=== PATIENT | male | born 1955 | race Caucasian/White ===

== ENCOUNTER 2017-09-24 02:18 | Emergency (ER) | payer OTHER ==
[~2017-09-24] VITALS: Ht 185.4 cm; Wt 100.9 kg
[~2017-09-24 02:18] MED LIST: CHOLESTID PO; HUMERA SC
[2017-09-24 02:22] VITALS: TEMP 36.6; Ht 185.4 cm; Wt 100.9 kg
[2017-09-24 02:26] VITALS: O2SAT 100
[2017-09-24 02:42] LABS: BASO % 1.1 %; BASO ABS # 0.07 K/uL (0-0.2); EOS % 4.9 %; EOS ABS # 0.31 K/uL (0-0.5); HEMATOCRIT 40.5 % (42-52); HEMOGLOBIN 14.2 g/dL (14.0-18.0); IG# 0.02 K/uL (0.00-0.02); LYMPH % 33.1 %; LYMPH ABS # 2.09 K/uL (1.2-3.4); MEAN CELL VOLUME 86.4 fL (80-100); MEAN CORPUSCULAR HEMOGLOBIN 30.3 pg (25-34); MEAN CORPUSCULAR HGB CONC 35.1 g/dl (32-36); MEAN PLATELET VOLUME 8.5 fL (7.4-10.4); MONO % 10.5 %; MONO ABS # 0.66 K/uL (0.11-0.59); NEUT % 50.1 %; NEUT ABS # 3.16 K/uL (1.4-6.5); PLATELET COUNT 197 K/uL (130-400); RED CELL DISTRIBUTION WIDTH CV 13.3 % (11.5-14.5); WHITE BLOOD COUNT 6.31 K/uL (4.8-10.8)
[2017-09-24] MEDS ORDERED: HYDCR25 TOP (02:47)
[2017-09-24] MEDS ORDERED: COLE1TAB PO (02:47)
[2017-09-24] MEDS ORDERED: FLUT0.15 NAE (02:47)
[2017-09-24] MEDS ORDERED: ATOR-22 PO (02:47)
[2017-09-24] MEDS ORDERED: LISI-461 PO (02:47)
[2017-09-24] MEDS ORDERED: HMRIS40 INJ (02:47)
[2017-09-24] MEDS ORDERED: GLC/500 PO (02:47)
--- NOTE | 2017-09-24 02:57 | EMERGENCY ROOM VISIT NOTE ---
History Report prepared by Marcella: Shereen Benz Under the Supervision of: Dr. Kim Funk D.O. First contact with patient: 02:21 Chief Complaint: CHEST PAIN Stated Complaint: chest pain History of Present Illness The patient is a 62 year old male who presents to the Emergency Room with complaints of intermittent chest pain starting a few days ago. The patient states that the pain was mild, but has become worse. He states that the pain is on the left side and he currently rates his pain as a 1/10 in severity. He notes that occasionally he has diaphoresis with chest pain. He notes that exercise makes the pain better. The patient denies ever having chest pain before , ever having a stress test, ever having a cardiac cath done, increased stress, nausea, shortness of breath, leg cramping, leg swelling, and change with deep breathing. Source of History: patient Onset: a few days ago Position: chest Symptom Intensity: 1/10 Timing: intermittent Modifying Factors (Relieving): other (exercise) Associated Symptoms: + diaphoresis, No SOB, No nausea Note: The patient denies leg cramping, leg swelling, increased stress, and change with deep breathing. Review of Systems See HPI for pertinent positives & negatives. A total of 10 systems reviewed and were otherwise negative. Past Medical & Surgical Medical Problems: (1) Crohn's disease (2) HTN (hypertension) Family History Cardiac pacemaker FH: diabetes mellitus Hypertension Social History Smoking Status: Never Smoker Marital Status: single Housing Status: lives alone Occupation Status: retired Current/Historical Medications Scheduled Adalimumab (Humira Pen), 40 MG INJ WK Atorvastatin (Lipitor), 1 TAB PO DAILY Colestipol Hcl (Colestid), 1 GM PO BID Fluticasone Propionate (Nasal) (Flonase Allergy Relief), 2 SPRAYS MAXIM DAILY Lisinopril (Lisinopril), 10 MG PO QAM Metformin Hcl (Glucophage), 500 MG PO BID Scheduled PRN Hydrocortisone (Hydrocortisone), 1 APPLN TOP DIRECTED PRN for AFFECTED AREA Allergies Coded Allergies: No Known Allergies (Verified , 09/24/17) Physical Exam Vital Signs Date Time Temp Pulse Resp B/P (MAP) Pulse Ox O2 Delivery O2 Flow Rate FiO2 09/24/17 04:11 72 20 165/94 97 09/24/17 03:31 74 20 159/88 98 Room Air 09/24/17 03:01 75 17 154/90 98 Room Air 09/24/17 02:31 163/86 09/24/17 02:30 169/99 09/24/17 02:27 100 Room Air 09/24/17 02:26 100 Room Air 09/24/17 02:26 Room Air 09/24/17 02:22 36.6 82 18 199/99 99 Room Air Physical Exam HEENT: Head - normocephalic and atraumatic Pupils are equal, round, and reactive to light. Extraocular eye muscles are intact, and sclera are anicteric. Nose - moist nasal mucosa without discharge. Mouth - moist buccal mucosa. Oropharynx is nonerythematous and there is no tonsillar exudate or edema noted. Neck: Supple; no JVD, nuchal rigidity, cervical lymphadenopathy. Heart: Regular rate and rhythm. There is a normal S1 and S2 with no murmurs, clicks, or gallops appreciated. Lungs: Clear to auscultation bilaterally with no wheezes, rales, or rhonchi. Abdomen: Soft, completely nontender, nondistended, with good bowel sounds. There are no palpable pulsatile masses or hepatosplenomegaly. There is no guarding, rigidity, or rebound noted. Extremities: No evidence of cyanosis, clubbing, or edema. There are easily palpable peripheral pulses. Skin: warm and dry with good turgor and no rashes. Medical Decision & Procedures ER Provider Diagnostic Interpretation: CHEST X-RAY: The results were interpreted by me. Borderline cardiomegaly. No obvious pulmonary infiltrates or consolidation. Narrow mediastinum. Laboratory Results 09/24/17 02:25 Red Blood Count 4.69, Mean Corpuscular Volume 86.4, Mean Corpuscular Hemoglobin 30.3, Mean Corpuscular Hemoglobin Concent 35.1, Mean Platelet Volume 8.5, Neutrophils (%) (Auto) 50.1, Lymphocytes (%) (Auto) 33.1, Monocytes (%) (Auto) 10.5, Eosinophils (%) (Auto) 4.9, Basophils (%) (Auto) 1.1, Neutrophils # (Auto ) 3.16, Lymphocytes # (Auto) 2.09, Monocytes # (Auto) 0.66, Eosinophils # (Auto ) 0.31, Basophils # (Auto) 0.07 09/24/17 02:25 Test 09/24/17 02:25 White Blood Count 6.31 K/uL (4.8-10.8) Red Blood Count 4.69 M/uL (4.7-6.1) Hemoglobin 14.2 g/dL (14.0-18.0) Hematocrit 40.5 % (42-52) Mean Corpuscular Volume 86.4 fL (80-100) Mean Corpuscular Hemoglobin 30.3 pg (25-34) Mean Corpuscular Hemoglobin Concent 35.1 g/dl (32-36) Platelet Count 197 K/uL (130-400) Mean Platelet Volume 8.5 fL (7.4-10.4) Neutrophils (%) (Auto) 50.1 % Lymphocytes (%) (Auto) 33.1 % Monocytes (%) (Auto) 10.5 % Eosinophils (%) (Auto) 4.9 % Basophils (%) (Auto) 1.1 % Neutrophils # (Auto) 3.16 K/uL (1.4-6.5) Lymphocytes # (Auto) 2.09 K/uL (1.2-3.4) Monocytes # (Auto) 0.66 K/uL (0.11-0.59) Eosinophils # (Auto) 0.31 K/uL (0-0.5) Basophils # (Auto) 0.07 K/uL (0-0.2) RDW Standard Deviation 42.0 fL (36.4-46.3) RDW Coefficient of Variation 13.3 % (11.5-14.5) Immature Granulocyte % (Auto) 0.3 % Immature Granulocyte # (Auto) 0.02 K/uL (0.00-0.02) Anion Gap 6.0 mmol/L (3-11) Est Creatinine Clear Calc Drug Dose 92.9 ml/min Estimated GFR () 89.8 Estimated GFR (Non- 77.5 BUN/Creatinine Ratio 13.9 (10-20) Calcium Level 8.3 mg/dl (8.5-10.1) Total Bilirubin 0.6 mg/dl (0.2-1) Direct Bilirubin 0.2 mg/dl (0-0.2) Aspartate Amino Transf (AST/SGOT) 19 U/L (15-37) Alanine Aminotransferase (ALT/SGPT) 34 U/L (12-78) Alkaline Phosphatase 57 U/L (45-117) Troponin I < 0.015 ng/ml (0-0.045) Total Protein 7.7 gm/dl (6.4-8.2) Albumin 3.8 gm/dl (3.4-5.0) Laboratory results per my review. ECG Per My Interpretation Indication: chest pain Rate (beats per minute): 80 Rhythm: normal sinus Findings: ST depression (lead 2), other (no ST elevations) Comparison ECG Date: 01/31/2010 Change: no significant change ED Course 0224: Past medical records reviewed. The patient was evaluated in room B9. A complete history and physical exam was performed. An IV lock was initiated and labs are drawn as above. A 12-lead EKG was obtained as described above. The patient had a chest x-ray which was unremarkable. 0350: Upon reevaluation, the patient was feeling much better. I discussed findings and results with him. He verbalized agreement of the treatment plan. He will follow up with his PCP for stress testing. The patient was discharged home. Medical Decision The patient is a 62 year old male who presents to the Emergency Room with complaints of intermittent chest pain starting a few days ago. Differential diagnoses include costochondritis, acute coronary syndrome, STEMI, aortic dissection, pleurisy. LABS: Normal troponin Negative LFTs Glucose 127 Normal renal function No leukocytosis Stable H&H This is a 62-year-old male patient presents to the emerge with some left-sided chest discomfort that began a couple of days ago. The patient has a normal- appearing EKG and cardiac enzymes which are negative. His symptoms have been intermittent for the past couple of days. There is no associated nausea, shortness of breath, or diaphoresis. The patient's chest discomfort actually got better with exercise. I have asked the patient to follow-up with his PCP if the chest discomfort persists so that he can have a cardiac stress test. The patient was instructed to return to the emergency department immediate worsening chest discomfort, shortness of breath, nausea or diaphoresis. Medication Reconcilliation Current Medication List: was personally reviewed by me Blood Pressure Screening Patient's blood pressure: Elevated blood pressure Blood pressure disposition: Referred to PCP Impression Primary Impression: Left sided chest pain Scribe Attestation The scribe's documentation has been prepared under my direction and personally reviewed by me in its entirety. I confirm that the note above accurately reflects all work, treatment, procedures, and medical decision making performed by me. Departure Information Dispostion Home / Self-Care Referrals Dileep Jones III, M.D. (PCP) Forms Call Back Authorization, HOME CARE DOCUMENTATION FORM, IMPORTANT VISIT INFORMATION Patient Instructions My [facility] Additional Instructions Rest. No strenuous activity until follow up with PCP. You should be referred to cardiology for cardiac stress testing. Return to the ED for any increased chest pain, shortness of breath, nausea or sweating.
[2017-09-24 03:06] LABS: ALBUMIN 3.8 gm/dl (3.4-5.0); ALKALINE PHOSPHATASE 57 U/L (45-117); ALT/SGPT 34 U/L (12-78); AST/SGOT 19 U/L (15-37); BLOOD UREA NITROGEN 14 mg/dl (7-18); CALCIUM 8.3 mg/dl (8.5-10.1); CARBON DIOXIDE 26 mmol/L (21-32); CREATININE 1.03 mg/dl (0.60-1.40); GLUCOSE 127 mg/dl (70-99); POTASSIUM 4.1 mmol/L (3.5-5.1); SODIUM 131 mmol/L (136-145); TOTAL PROTEIN 7.7 gm/dl (6.4-8.2)
[2017-09-24 04:11] VITALS: BP 165/94; PULSE 72; O2SAT 97
--- NOTE | 2017-09-24 06:54 | DIAGNOSTIC IMAGING REPORT ---
CHEST ONE VIEW PORTABLE HISTORY: 62 years-old Male chest pain acute atypical chest pain COMPARISON: Chest CT 01/31/2010 TECHNIQUE: Portable AP view of the chest FINDINGS: Cardiomediastinal and hilar silhouettes are within normal limits. There is no pneumothorax, pleural effusion, focal airspace consolidation or overt pulmonary edema. The bones of the chest appear grossly intact. IMPRESSION: No acute process. The above report was generated using voice recognition software. It may contain grammatical, syntax or spelling errors. Electronically signed by: Rafa Menon M.D. 09/24/2017 6:53 AM Dictated Date/Time: 09/24/2017 6:52 AM
== END 2017-09-24 04:13 | disposition home or self-care (01) ==
LOC: C.EDB 02:19
DX: R07.9 Chest pain, unspecified (principal); R61 Generalized hyperhidrosis; K50.90 Crohn's disease, unspecified, without complications; I10 Essential (primary) hypertension; Z79.84 Long term (current) use of oral hypoglycemic drugs; Z79.899 Other long term (current) drug therapy